=== PATIENT | male | born 1975 | race Caucasian/White ===

== ENCOUNTER 2017-08-27 15:13 | Emergency (ER) | payer OTHER ==
[2017-08-27 15:21] VITALS: BMI 25.7
[2017-08-27] MEDS ORDERED: DUONEB 0.5 MG/3 MG ONE (15:24)
[2017-08-27] MEDS ORDERED: SOLU-Medrol 125 MG VIAL ONE (15:25)
--- NOTE | 2017-08-27 15:33 | DR.GENAD ---
HPI - PCP Primary Care Physician: mikel - Complaint/Symptoms Chief Complaint Doctors Comments: Patient related to nurse that he used methampetmine on last night Chief Complaint:: PT C/O SWOLLEN TONSILS AND CHOKING. PT STATES WHEN HE GOT UP THIS AM IS WHEN HE NOTICED THIS PROBLEM. PT STATES HE HAS NOT BEEN ABLE TO DRINK ANYTHING - Source History Provided: Patient - Mode of Arrival Mode of Arrival: Ambulatory - Timing Onset of Chief Complaint: 08/27/17 PMH - PMH Past Medical History: Yes Past Medical History: Anxiety Past Medical History Comment: MENTAL HEALTH PROBLEMS Past Surgical History: Yes Past Surgical History Comment: HEMRROIDECTOMY - Family History History of Family Medical Conditions: No - Social History Does patient currently use any type of tobacco product: Yes Have you used tobacco products in the last 12 months: Yes Type of Tobacco Use: Cigarettes Does any household member use tobacco: Yes Alcohol Use: Occasionally Do you use any recreational Drugs:: No Lives With: Family Lives Where: Home - infectious screening In the last 2 months have you had wt loss of >10#?: NO Have you had fever, night sweats or hemotysis?: No Have you traveled outside the country in the last 6 months?: No Isolation: Standard ROS - Review of Systems Eyes: No Symptoms Reported ENTM: No Symptoms Reported Respiratoy: No Symptoms Reported Cardiovascular: No Symptoms Reported Gastrointestinal/Abdominal: No Symptoms Reported Genitourinary: No Symptoms Reported Neurological: No Symptoms Reported Musculoskeletal: No Symptoms Reported Integumentary: No Symptoms Reported Hematologic/Lymphatic: No Symptoms Reported Endocrine: No Symptoms Reported Psychiatric: No Symptoms Reported All Other Systems: Reviewed and Negative PE - Vital Signs Vitals: Temperature 98.7 F Pulse Rate [Right Radial] 111 Pulse Rate 97 Respiratory Rate 18 Blood Pressure [Right Arm] 186/97 Blood Pressure 159/107 O2 Sat by Pulse Oximetry 100 - General Limitations: No Limitations General Appearance: Alert, In No Apparent Distress - Head Head Exam: Normal Inspection, Atraumatic - Eyes Eye exam: Normal Appearance, PERRL, EOMI - ENT ENT Exam: Normal Exam External Ear Exam: Normal External Inspection TM/Canal Exam: Bilateral Normal Nose Exam: Normal Nose Exam Mouth Exam: Normal Inspection Throat Exam: Normal Inspection - Neck Neck Exam: Normal Inspection, Full ROM - Chest Chest Inspection: Normal Inspection, Symmetric Chest Wall Rise - Respiratory Respiratory Exam: Normal Lung Sounds Bilat Respiratory Exam: Bilateral Clear to Auscultation - Cardiovascular Cardiovascular Exam: Regular Rate, Normal Rhythm - Abdominal Exam Abdominal Exam: Normal Inspection, Normal Bowel Sounds Abdominal Tenderness: negative: RUQ, RLQ, LUQ, LLQ, Epigastrium, Suprapubic, Diffuse, Mild, Moderate, Severe, Other - Extremities Extremities Exam: Normal Inspection - Back Back Exam: Normal Inspection, Full ROM - Neurologic Neurological Exam: Alert, Oriented X3, CN II-XII Intact - Psychiatric Psychiatric Exam: Normal Affect, Normal Mood - Skin Skin Exam: Warm, Dry, Intact Course - Reevaluation 1st: Improved ROR - Labs Reviewed Laboratory Results Reviewed?: Yes (UDS: Methamphetamine benzodiazepine) Laboratory: Specimen Type Clean catch urine 08/27/17 16:29 Urine Color Gayatri (YELLOW) 08/27/17 16:29 Urine Appearance Slightly hazy (CLEAR) 08/27/17 16:29 Urine pH 5.0 (5.0 - 8.0) 08/27/17 16:29 Ur Specific [place] 1.020 (1.000-1.030) 08/27/17 16:29 Urine Protein 2+ (NEGATIVE) 08/27/17 16:29 Urine Glucose (UA) Negative (NEGATIVE) 08/27/17 16:29 Urine Ketones 1+ (NEGATIVE) 08/27/17 16:29 Urine Occult Blood 2+ (NEGATIVE) 08/27/17 16:29 Urine Nitrite Negative (NEGATIVE) 08/27/17 16:29 Urine Bilirubin Negative (NEGATIVE) 08/27/17 16:29 Urine Urobilinogen Normal (NORMAL) 08/27/17 16:29 Ur Leukocyte Esterase 1+ (NEGATIVE) 08/27/17 16:29 Urine RBC 10-12 /HPF (NEGATIVE) 08/27/17 16:29 Urine WBC 6-8 /HPF (NEGATIVE) 08/27/17 16:29 Ur Squamous Epith Cells Few /HPF (NEGATIVE) 08/27/17 16:29 Urine Bacteria 1+ /HPF (NEGATIVE) 08/27/17 16:29 Urine Mucus Many /HPF (NEGATIVE) 08/27/17 16:29 Ur Culture Indicated? Yes/culture set up 08/27/17 16:29 Urine Opiates Screen Negative (NEG=<300) 08/27/17 16:29 Urine Methadone Screen Negative (NEG=<300) 08/27/17 16:29 Ur Barbiturates Screen Negative (NEG=<200) 08/27/17 16:29 Ur Phencyclidine Scrn Negative (NEG=<25) 08/27/17 16:29 Ur Amphetamines Screen Positive (NEG=<1000) 08/27/17 16:29 U Benzodiazepines Scrn Positive (NEG=<200) 08/27/17 16:29 Urine Cocaine Screen Negative (NEG=<300) 08/27/17 16:29 U Marijuana (THC) Screen Negative (NEG=<50) 08/27/17 16:29 Streptococcus Screen Negative (NEGATIVE) 08/27/17 15:31 - XRAY XRAY Interpreted by: Self (soft tissue lateral neck: negative) - Diagnosis Discharge Problem: Illicit drug use - Discharge Plan Condition: Stable - Follow ups/Referrals Follow ups/Referrals: MOISÉS VERDIN [Primary Care Provider] - 3 days - Instructions
[2017-08-27] MEDS ORDERED: SOLU-Medrol 125 MG VIAL IVP ONE (15:34)
[2017-08-27 16:50] LABS: BILIRUBIN,URINE NEGATIVE (NEGATIVE); BLOOD/HEMOGLOBIN,URINE 2+ (NEGATIVE); GLUCOSE, URINE NEGATIVE (NEGATIVE); KETONES,URINE 1+ (NEGATIVE); LEUKOCYTE ESTERASE ,URINE 1+ (NEGATIVE); NITRITES,URINE NEGATIVE (NEGATIVE); PROTEIN,URINE 2+ (NEGATIVE); UROBILINOGEN,URINE NORMAL (NORMAL)
[2017-08-27 16:51] LABS: APPEARANCE,URINE SLIGHTLY HAZY (CLEAR); BACTERIA,URINE 1+ /HPF (NEGATIVE); COLOR,URINE AMBER (YELLOW); MUCUS,URINE MANY /HPF (NEGATIVE); SQUAMOUS EPITHELIAL CELL,UR FEW /HPF (NEGATIVE)
[2017-08-27 17:02] VITALS: BP 186/97
--- NOTE | 2017-08-27 21:29 | RAD ---
HISTORY: 41-year-old male with edematous appearing tonsils. Study: Frontal and lateral views of the soft tissues of the neck. Comparison: None. The prevertebral soft tissues are unremarkable in their appearance. No evidence for foreign body can be identified. The hypopharynx and distal airway appear unremarkable. The bony cervical spine is g rossly unremarkable. Lung apices are clear. IMPRESSION: 1. Negative exam. Reported By:
--- NOTE | 2017-08-27 22:37 | RAD ---
HISTORY: 41-year-old male with cough and swollen tonsils. Study: Frontal views of the chest. Comparison: None. Findings: The trachea is midline. The cardiac silhouette is unremarkable. The lungs are clear without focal c onsolidation, effusion or pneumothorax. Soft tissues are unremarkable. Osseous structures are unrema rkable. IMPRESSION: 1. No acute cardiopulmonary disease. Reported By:
== END 2017-08-27 17:50 | disposition home or self-care (01) ==
LOC: ER 15:34
DX: F15.90 Other stimulant use, unspecified, uncomplicated (principal)
CPT/HCPCS: 70360; 71010; 80307; 81001; 87070; 87086; 87880; 96365; 96374; 99283; A4222; G0434; J2930; J7620